=== PATIENT | male | born 1945 | race Caucasian/White ===

== ENCOUNTER 2020-05-15 01:36 | Outpatient (CLI) | payer OTHER, SELFPAY ==
[2020-05-15 20:48] LABS: SARS-CoV-2 RNA PCR Negative
== END 2020-05-15 01:37 | disposition home or self-care (01) ==
LOC: ANHCOVIDDT 01:42
PROVIDERS: Visit Provider Internal Medicine Gastroenterology
DX: Z01.812 Encounter for preprocedural laboratory examination (principal); Z20.828 Contact with and (suspected) exposure to other viral communicable diseases
CPT/HCPCS: 87635; C9803; U0003

== ENCOUNTER 2020-05-17 01:15 | Day surgery (SDC) | payer OTHER, SELFPAY ==
[2020-05-08 10:55] VITALS: BMI 38.7
[2020-05-17] MEDS: LACTATED RINGERS 1,000 ML 150 ML IV CONT (06:53)
[2020-05-17 06:54] VITALS: BP 136/59; PULSE 61; RESP 20; TEMP 36.2; O2SAT 97; BMI 38.3
--- NOTE | 2020-05-17 07:44 | WPDANESEPPF ---
Anes - Initial Pre Proc Eval Procedure: Operation Date: 05/17/20 08:00 Proposed Procedures p Screening Colonoscopy - Gab Arevalo MD Date/Time: 05/17/20 07:44 Surgeon: Gab Arevalo MD Pre Op Diagnosis: Family Hx of Colon CA Patient Data Age: 75 Gender: M Height: 6 ft Weight: 128.3 kg Last Vital Signs Temp 97.2 F L 05/17/20 06:54 Pulse 61 05/17/20 06:54 Resp 20 05/17/20 06:54 BP 136/59 L 05/17/20 06:54 Pulse Ox 97 05/17/20 06:54 Allergies Allergy/AdvReac Type Severity Reaction Status Date / Time No Known Allergies Allergy Verified 05/17/20 06:47 Home Medications Medication Instructions Recorded Confirmed Type alfuzosin 10 mg PO DAILY 05/08/20 05/08/20 History allopurinol 300 mg PO DAILY 05/08/20 05/08/20 History aspirin 81 mg PO DAILY 05/08/20 05/08/20 History digoxin 125 mcg PO DAILY 05/08/20 05/08/20 History gabapentin 300 mg PO BID 05/08/20 05/08/20 History gemfibrozil 600 mg PO BID 05/08/20 05/08/20 History multivitamin 1 tablet PO DAILY 05/08/20 05/08/20 History simvastatin 20 mg PO DAILY 05/08/20 05/08/20 History Patient hx anesthesia problems: none Family hx anesthesia problems: none PMFSH Past Medical History Medical History (Updated 05/17/20 @ 07:44 by Braxton Collier MD) GERD (gastroesophageal reflux disease) Hyperlipidemia Hypertension Irregular heart beat Obesity Anes - Eval Final PreProcedure Day of Procedure 05/17/20 07:44 Patient weight: obese Heart: regular rate and rhythm Lungs: clear to auscultation Airway: Mallampati scale class II Neurological: alert and oriented Last oral intake: >/= 8 hours ASA classification: III Emergent: no Anesthetic plan: proceed Anesthesia type and monitoring: general GIVS and standard monitoring Informed Consent: The patient's anesthetic plan and its attendant risks and benefits were discussed with the patient/family/POA. Questions were solicited and answers provided to the satisfaction of the patient/family/POA.
--- NOTE | 2020-05-17 08:03 | WPDGICN ---
Assessment and Plan Assessment and plan (1) Family history of colon cancer in father: Code(s): Z80.0 - Family history of malignant neoplasm of digestive organs Status: Acute Assessment and Plan: patient's father had colon cancer. Patient had a colonoscopy approximately 5 years ago that was unremarkable. Plan is for surveillance colonoscopy at this time. GI Consult Note Consult date/time: 05/17/20 08:03 HPI: Chris Cancino is a 75 year old male Presents for surveillance colonoscopy. Patient states his weight appetite bowel movements are normal. He denies abdominal pain. His bowel habits are normal. He has had no weight loss or bleeding. Family history is significant that his father with colon cancer. Family history also significant his with breast cancer. His son 2 months ago from a unexpected heart attack. Review of Systems Review of Systems: All systems reviewed & are unremarkable except as noted in HPI and below PMFSH Past Medical History Medical History GERD (gastroesophageal reflux disease) Hyperlipidemia Hypertension Irregular heart beat Obesity Meds Home Medications and Allergies Home Medications Medication Instructions Recorded Confirmed Type alfuzosin 10 mg PO DAILY 05/08/20 05/08/20 History allopurinol 300 mg PO DAILY 05/08/20 05/08/20 History aspirin 81 mg PO DAILY 05/08/20 05/08/20 History digoxin 125 mcg PO DAILY 05/08/20 05/08/20 History gabapentin 300 mg PO BID 05/08/20 05/08/20 History gemfibrozil 600 mg PO BID 05/08/20 05/08/20 History multivitamin 1 tablet PO DAILY 05/08/20 05/08/20 History simvastatin 20 mg PO DAILY 05/08/20 05/08/20 History Allergies Allergy/AdvReac Type Severity Reaction Status Date / Time No Known Allergies Allergy Verified 05/17/20 06:47 Vital Signs Vital Signs - 24 hr 05/17/20 06:54 Temperature 97.2 F L Pulse Rate 61 Respiratory Rate 20 Blood Pressure 136/59 L Pulse Oximetry 97 Exam Narrative: Exam Narrative: Physical exam reveals patient to be alert. Vital signs stable. HEENT exam unremarkable. Lungs are clear to auscultation and percussion. Heart is without murmur or extra sounds. Abdominal exam bowel sounds are present soft nontender with no hepatosplenomegaly. Digital external rectal exam normal
[2020-05-17 08:26] VITALS: BP 135/76; PULSE 61; RESP 21; O2SAT 95
[2020-05-17 08:36] VITALS: BP 120/69; PULSE 58; RESP 16; O2SAT 96
[2020-05-17 08:46] VITALS: BP 137/73; PULSE 55; RESP 20; O2SAT 97
== END 2020-05-17 09:30 | disposition home or self-care (01) ==
PROVIDERS: Visit Provider Internal Medicine Gastroenterology
PROC: 0DJD8ZZ Inspection of Lower Intestinal Tract, Via Natural or Artificial Opening Endoscopic (ICD-10-PCS; CPT 45378; principal; 2020-05-17 08:00)
DX: Z12.11 Encounter for screening for malignant neoplasm of colon (principal); Z80.0 Family history of malignant neoplasm of digestive organs; K57.30 Diverticulosis of large intestine without perforation or abscess without bleeding; K64.8 Other hemorrhoids; I10 Essential (primary) hypertension; E78.5 Hyperlipidemia, unspecified; K21.9 Gastro-esophageal reflux disease without esophagitis; E66.9 Obesity, unspecified; Z68.38 Body mass index [BMI] 38.0-38.9, adult; Z79.82 Long term (current) use of aspirin; Z79.899 Other long term (current) drug therapy
CPT/HCPCS: G0105; J2704; J7120